=== PATIENT | male | born 1930 | race Caucasian/White ===

== ENCOUNTER 2017-04-07 16:03 | Emergency (ER) | payer MEDICARE, OTHER | END 2017-04-07 17:23 | disposition home or self-care (01) | LOC: E/R 16:03 | DX: S01.01XA Laceration without foreign body of scalp, initial encounter (principal); W01.0XXA Fall on same level from slipping, tripping and stumbling without subsequent striking against object, initial encounter; Y92.239 Unspecified place in hospital as the place of occurrence of the external cause | CPT/HCPCS: 12002; 70450; 99284-25 ==